=== PATIENT | female | born 1950 | race Caucasian/White ===

== ENCOUNTER 2018-09-06 09:12 | Outpatient (CLI) | payer MEDICARE, SELFPAY ==
[2018-09-06 09:45] VITALS: BP 153/73; PULSE 63; RESP 18; O2SAT 97
== END 2018-09-06 10:00 | disposition home or self-care (01) ==
LOC: INF 09:17
PROVIDERS: PCP Family Medicine; Visit Provider Family Medicine
DX: M81.0 Age-related osteoporosis without current pathological fracture (principal)
CPT/HCPCS: 96372; J0897